=== PATIENT | female | born 1995 | race Caucasian/White ===

== ENCOUNTER 2021-02-13 22:09 | Emergency (ER) | payer OTHER ==
[~2021-02-13] VITALS: Ht 167.6 cm; Wt 70.3 kg
[2021-02-13] MEDS ORDERED: SUNOSI150 MG PO (23:56)
[2021-02-13] MEDS ORDERED: ALLEGRA ALLERG180 MG PO (23:56)
== END 2021-02-14 06:09 | disposition home or self-care (01) ==
LOC: ER 22:09
DX: S06.0X0A Concussion without loss of consciousness, initial encounter (principal); V89.2XXA Person injured in unspecified motor-vehicle accident, traffic, initial encounter
CPT/HCPCS: 96372; 99283-25; A9270; J1885; J2765